=== PATIENT | female | born 1960 | race Hispanic/Latino ===

== ENCOUNTER 2023-04-23 07:35 | Emergency (ER) | payer OTHER, MEDICAID ==
[~2023-04-23] VITALS: Ht 157.5 cm; Wt 72.6 kg
[2023-04-23] MEDS: CYCLOBENZAPRINE HCL 10 MG TABLET PO ONE (09:42)
[2023-04-23] MEDS: ACETAMINOPHEN 500 MG TABLET PO ONE (09:42)
[2023-04-23] MEDS ORDERED: IBUP-2077 PO (10:31)
[2023-04-23] MEDS ORDERED: CYCL-309 PO (10:31)
[2023-04-23 10:50] VITALS: BP 111/79; PULSE 64; RESP 18; O2SAT 97
== END 2023-04-23 10:57 | disposition home or self-care (01) ==
LOC: EDH 07:35
DX: S39.012A Strain of muscle, fascia and tendon of lower back, initial encounter (principal); M47.898 Other spondylosis, sacral and sacrococcygeal region; E78.00 Pure hypercholesterolemia, unspecified; I10 Essential (primary) hypertension; V89.2XXA Person injured in unspecified motor-vehicle accident, traffic, initial encounter; Y93.89 Activity, other specified; Y92.89 Other specified places as the place of occurrence of the external cause; Y99.8 Other external cause status
CPT/HCPCS: 72100